=== PATIENT | male | born 1985 | race African-American/Black ===

== ENCOUNTER 2022-06-05 13:18 | Emergency (ER) | payer MEDICAID, OTHER ==
[~2022-06-05] VITALS: Ht 182.9 cm; Wt 81.0 kg
[2022-06-05] MEDS ORDERED: TOPUD MT (15:43)
[2022-06-05] MEDS ORDERED: HYDR25TA MT (15:43)
[2022-06-05] MEDS ORDERED: IBUP-2029 MT (15:43)
[2022-06-05] MEDS ORDERED: METH-653 MT (15:43)
[2022-06-05] MEDS ORDERED: ACETAMINOPHEN 325MG TABLET PO ONE (15:45)
[2022-06-05] MEDS ORDERED: IBUPROFEN 600MG TABLET PO ONE (15:45)
[2022-06-05 15:54] VITALS: BP 155/98
== END 2022-06-05 16:01 | disposition home or self-care (01) ==
LOC: ER 13:18
DX: M25.511 Pain in right shoulder (principal); M54.9 Dorsalgia, unspecified; I10 Essential (primary) hypertension; V43.52XA Car driver injured in collision with other type car in traffic accident, initial encounter; Y93.89 Activity, other specified; Y92.410 Unspecified street and highway as the place of occurrence of the external cause
CPT/HCPCS: 99283